=== PATIENT | male | born 1960 | race Caucasian/White ===

== ENCOUNTER → 2017-02-08 | Outpatient (CLI) | payer OTHER ==
--- NOTE | 2017-02-08 12:05 | MRI ---
STUDY: MRI OF THE BRAIN WITHOUT GADOLINIUM HISTORY: History of stroke. Dizziness and left-sided weakness. Technique: Multiplanar multi-sequence MRI of the brain was obtained utilizing standard departmental p rotocol. Sagittal and axial T1, axial T2, FLAIR, diffusion (DWI/ADC)and GRE images through the brain were performed. Comparison: None. Findings: The sulci, cisterns and ventricles are age appropriate. There are confluent and scattered foci of T2 prolongation in the periventricular and subcortical white matter of both hemispheres. This is a nonsp ecific finding which likely represents microangiopathic change in a patient of this age. There is a chronic infarct with encephalomalacia and surrounding gliosis in the right frontal lobe. T here is no evidence of acute territorial infarction, hemorrhage, mass, mass effect, or midline shift. There are no abnormal intra-axial or extra-axial fluid collections. The major intracranial vascular flow voids appear intact. The right vertebral artery appears dominant . IMPRESSION: 1. No evidence of acute intracranial abnormality. 2. 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 3. Nonspecific white matter change. Reported By:
== END ==
LOC: RAD 09:21
PROVIDERS: ATTEND Psychiatry & Neurology Neurology
DX: G56.02 Carpal tunnel syndrome, left upper limb (principal); Z86.73 Personal history of transient ischemic attack (TIA), and cerebral infarction without residual deficits
CPT/HCPCS: 70551; 95819; 95909